=== PATIENT | female | born 1960 | race African-American/Black ===

== ENCOUNTER 2021-07-12 22:29 | Emergency (ER) | payer MEDICAID ==
[~2021-07-12] VITALS: Ht 165.1 cm; Wt 73.6 kg
[2021-07-12 23:45] VITALS: BP 138/74
== END 2021-07-13 01:06 | disposition home or self-care (01) ==
LOC: EMS 22:29
DX: H66.41 Suppurative otitis media, unspecified, right ear (principal); H61.21 Impacted cerumen, right ear; I10 Essential (primary) hypertension
CPT/HCPCS: 69210; 99284; Z7502